=== PATIENT | male | born 2000 | race Caucasian/White ===

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

== ENCOUNTER → 2023-05-07 | Outpatient (CLI) | payer OTHER ==
[~2023-05-07] MED LIST changes: +BENT10CA PO; -E-Z-PAQUE 96% w/w SUSP 176GM BTL As Ordered; +NAPR-885 PO; +TRAM50TA2 PO; +ZOFR4TAB14 PO
[2023-05-07 18:14] LABS: HIV 1&2 SCREEN NEGATIVE (NEGATIVE)
== END ==
LOC: M LAB 16:26
PROVIDERS: ATTEND Family Medicine
DX: Z11.3 Encounter for screening for infections with a predominantly sexual mode of transmission (principal)

== ENCOUNTER → 2024-05-31 | Outpatient (CLI) | payer OTHER | LOC: M SLEEP HO 14:52 | PROVIDERS: ATTEND Physician Assistant | DX: R06.83 Snoring (principal) ==